=== PATIENT | male | born 1995 | race Two or more races ===

== ENCOUNTER 2022-09-26 20:51 | Emergency (ER) | payer MEDICAID ==
[~2022-09-26] VITALS: Ht 182.9 cm; Wt 170.0 kg
[2022-09-27 00:08] VITALS: BP 132/75
== END 2022-09-27 00:21 | disposition home or self-care (01) ==
LOC: ER 20:56
DX: J98.01 Acute bronchospasm (principal)
CPT/HCPCS: 71046